=== PATIENT | male | born 1980 | race Caucasian/White ===

== ENCOUNTER 2017-01-11 23:22 | Emergency (ER) | payer SELFPAY ==
[~2017-01-11] VITALS: Ht 185.4 cm; Wt 94.0 kg
[~2017-01-11 23:22] MED LIST: ALBU18HF INHALATION; ARIP5TAB7 PO; PRED20TA PO; PULM90 INH; VENL225T PO
[2017-01-11 23:47] VITALS: Ht 185.4 cm; Wt 94.0 kg
== END 2017-01-12 04:35 | disposition left against medical advice (07) ==
LOC: FTE 23:22
DX: Z53.21 Procedure and treatment not carried out due to patient leaving prior to being seen by health care provider (principal)

== ENCOUNTER 2017-01-23 09:44 | Emergency (ER) | payer OTHER ==
[~2017-01-23] VITALS: Ht 185.4 cm; Wt 92.5 kg
[2017-01-23 09:46] VITALS: Ht 185.4 cm; Wt 92.5 kg
[2017-01-23] MEDS ORDERED: IPRATROPIUM (NEB) 0.5 MG/2.5 ML AMP NEB STA (10:26)
[2017-01-23] MEDS ORDERED: ALBUTEROL 0.083% (NEB) 2.5 MG/3 ML AMP NEB STA (10:26)
--- NOTE | 2017-01-23 10:45 | ERD ---
ER Documentation Chief Complaint Date/Time DATE: 01/23/17 TIME: 10:42 Chief Complaint asthma attack x3 in last 3 days, speaking full sentences, no sob noted. HPI This is a 36-year-old male who presents to the emergency department today complaining of an asthma attack this morning. Patient said it resolved here upon presentation to the emergency room. Patient states he has had 3 asthma attacks in the last 3 days. States he took a Zyrtec today but he has run out of his inhaler. States he tried to call his primary care doctor to get a refill but his doctor would not give him 1. States he has an appointment in 2 days with his primary care physician for follow-up. Denies any fevers or chills , chest pain or shortness of breath currently ROS All systems reviewed and are negative except as per history of present illness. Medications Home Meds Active Scripts Fluticasone Propionate (Flonase Allergy Relief) 9.9 Ml [place].susp, 1 SPRAY NASAL BID, #1 BOTTLE TO EACH NOSTRIL Prov:AUTUMN HUGGINS PA-C 01/23/17 Albuterol Sulfate* (Proair HFA*) 8.5 Gm Hfa.aer.ad, 2 PUFF INH Q4, #1 INHALER Prov:AUTUMN HUGGINS PA-C 01/23/17 Budesonide* (Pulmicort* Flexhaler) 90 Mcg Aer.pow.ba, 90 MCG INH BID, #1 EA Prov:PA SAWYER DO 09/21/16 Prednisone* (Prednisone*) 20 Mg Tab, 40 MG PO DAILY, #4 TAB Prov:SILVERIOPA DO 09/21/16 Albuterol Sulfate* (Ventolin HFA*) 18 Gm Hfa.aer.ad, 2 PUFF INHALATION Q4H, #2 INHALER Prov:PA SAWYER DO 09/21/16 Reported Medications Venlafaxine Hcl* (Venlafaxine Hcl ER*) 225 Mg Tab.er.24, 225 MG PO DAILY, TAB.SA 05/20/16 Aripiprazole* (Abilify*) 5 Mg Tab, 5 MG PO DAILY, #30 TAB 05/20/16 Allergies Allergies: Coded Allergies: No Known Allergy (Unverified , 09/21/16) PMhx/Soc History of Surgery: Yes (kidney stone removal) Anesthesia Reaction: No Hx Neurological Disorder: No Hx Respiratory Disorders: Yes (asthma attacks) Hx Cardiac Disorders: No Hx Psychiatric Problems: No Hx Miscellaneous Medical Probl: No Hx Alcohol Use: No Hx Substance Use: Yes (occassionaly, marijuana ) Hx Tobacco Use: No Physical Exam Vitals Vital Signs Date Time Temp Pulse Resp B/P Pulse Ox O2 Delivery O2 Flow Rate FiO2 01/23/17 10:36 85 20 96 21 01/23/17 09:46 97.1 82 22 116/64 97 Physical Exam Const: NAD, speaking in full sentences. Head: Atraumatic Eyes: Normal Conjunctiva ENT: Normal External Ears, Nose and Mouth. Neck: Full range of motion..~ No meningismus. Resp: Sided lung field with very faint wheezing at bases. Right-sided lung clear. No retractions. Cardio: Regular rate and rhythm, no murmurs Abd: Soft, non tender, non distended. Normal bowel sounds Skin: No petechiae or rashes Neur: Awake and alert Psych: Normal Mood and Affect Results 24 hrs Current Medications Medications (Trade) Dose Ordered Sig/Ginette Route PRN Reason Start Time Stop Time Status Last Admin Dose Admin Albuterol (Proventil 0.083% (Neb)) 5 mg ONCE STAT NEB 01/23/17 10:26 01/23/17 10:28 DC 01/23/17 10:36 Ipratropium [place] (Atrovent 0.02% (Neb)) 0.5 mg ONCE STAT NEB 01/23/17 10:26 01/23/17 10:28 DC 01/23/17 10:36 Procedures/MDM This is a 36-year-old male who presents to the emergency department today complaining of an asthma attack that started this morning. Patient ran out of his pro-air inhaler. Patient is afebrile here in the emergency department. His oxygen saturation is 97%. Patient had very faint wheezing at the lung bases of the left side of his lung daily and therefore did give him one breathing treatment here in the emergency department. Patient reported feeling symptomatically better. Wheezing improved. Do not feel the patient requires steroids or a chest x-ray at this time. Low suspicion for pneumonia, PE, abscess, pleural effusion, pneumothorax. Patient symptoms at this time consistent with asthma exacerbation. Patient was given a prescription for pro-air for home. He was instructed to continue taking his Zyrtec. He did have some nasal congestion I will give him some Flonase as well. At this time the patient is stable for discharge and outpatient management. Patient should follow up with their PCP in the next 1-2 days. They may return to the emergency department sooner for any persistent or worsening of symptoms. Patient understood and agreed with the plan. Departure Diagnosis: Primary Impression: Asthma with acute exacerbation Asthma severity: unspecified severity Qualified Code: J45.901 - Asthma with acute exacerbation, unspecified asthma severity Condition: AUTUMN Royal PA-C Jan 23, 2017 10:45
[2017-01-23] MEDS ORDERED: FLUT9.9S NASAL (11:00)
[2017-01-23] MEDS ORDERED: ALBU8.5H3 INH (11:00)
== END 2017-01-23 11:08 | disposition home or self-care (01) ==
LOC: FTE 09:44
DX: J45.901 Unspecified asthma with (acute) exacerbation (principal)
CPT/HCPCS: 94664; Z7502; Z7610

== ENCOUNTER 2017-04-29 15:13 | Emergency (ER) | payer OTHER ==
[~2017-04-29] VITALS: Ht 185.4 cm; Wt 96.0 kg
[~2017-04-29 15:13] MED LIST changes: +ALBU8.5H3 INH; +FLUT9.9S NASAL
[2017-04-29 15:17] VITALS: Ht 185.4 cm; Wt 96.0 kg
[2017-04-29] MEDS ORDERED: ALBUTEROL 0.083% (NEB) 2.5 MG/3 ML AMP HHN STA (15:32)
--- NOTE | 2017-04-29 15:32 | ERD ---
ER Documentation Chief Complaint Date/Time DATE: 04/29/17 TIME: 15:30 Chief Complaint WHEEZING SINCE LAST NIGHT HPI 37-year-old male who presented emergency department for wheezing since last night. Has history of asthma. Ran out of his pro-air at home. His last dose of pro-air was last week. Stated that they are moving to another place and has been exposed to dust. Denies headache, loss of consciousness, dizziness, blurry vision, changes in vision, photophobia, facial pain, ear pain, throat pain, difficulty swallowing, neck pain, shoulder pain, chest pain, cough, hemoptysis, abdominal pain, back pain, loss of appetite, nausea, vomiting, hematochezia, diarrhea, constipation, urinary symptoms, bladder and bowel incontinences, extremity weakness, extremity tenderness, numbness or tingling sensation, difficulty walking, recent travel, recent exposure to illness, recent antibiotic use in the last 3 months, fever, chills. Allergy: No known drug allergies. PMH: Asthma. Left-sided kidney stones 2 years ago. Medications: Pro-air. Surgery: Right-sided inguinal hernia with repair 20 years ago. Family history: Denies family history of cardiac before the age of 50. Primary Social History: Works at a [employer]. Denies smoking, use of alcohol, use of illegal drugs. ROS All systems reviewed and are negative except as per history of present illness. Medications Home Meds Active Scripts Albuterol Sulfate* (Proair HFA*) 8.5 Gm Hfa.aer.ad, 2 PUFF INH Q4H Y for WHEEZING AND SOB, #2 INHALER Prov:MARISA MARY 04/29/17 Prednisone* (Prednisone*) 20 Mg Tab, 40 MG PO DAILY for 5 Days, TAB Prov:MARISA MARY 04/29/17 Fluticasone Propionate (Flonase Allergy Relief) 9.9 Ml [place].susp, 1 SPRAY NASAL BID, #1 BOTTLE TO EACH NOSTRIL Prov:AUTUMN HUGGINS PA-C 01/23/17 Albuterol Sulfate* (Proair HFA*) 8.5 Gm Hfa.aer.ad, 2 PUFF INH Q4, #1 INHALER Prov:AUTUMN HUGGINS PA-C 01/23/17 Budesonide* (Pulmicort* Flexhaler) 90 Mcg Aer.pow.ba, 90 MCG INH BID, #1 EA Prov:PA SAWYER DO 09/21/16 Prednisone* (Prednisone*) 20 Mg Tab, 40 MG PO DAILY, #4 TAB Prov:PA SAWYER DO 09/21/16 Albuterol Sulfate* (Ventolin HFA*) 18 Gm Hfa.aer.ad, 2 PUFF INHALATION Q4H, #2 INHALER Prov:PA SAWYER DO 09/21/16 Reported Medications Venlafaxine Hcl* (Venlafaxine Hcl ER*) 225 Mg Tab.er.24, 225 MG PO DAILY, TAB.SA 05/20/16 Aripiprazole* (Abilify*) 5 Mg Tab, 5 MG PO DAILY, #30 TAB 05/20/16 Allergies Allergies: Coded Allergies: No Known Allergy (Unverified , 09/21/16) PMhx/Soc History of Surgery: Yes (kidney stone removal) Anesthesia Reaction: No Hx Neurological Disorder: No Hx Respiratory Disorders: Yes (asthma attacks) Hx Cardiac Disorders: No Hx Psychiatric Problems: No Hx Miscellaneous Medical Probl: No Hx Alcohol Use: No Hx Substance Use: Yes (occassionaly, marijuana ) Hx Tobacco Use: No Physical Exam Vitals Vital Signs Date Time Temp Pulse Resp B/P Pulse Ox O2 Delivery O2 Flow Rate FiO2 04/29/17 15:42 79 21 97 21 04/29/17 15:17 98.0 87 18 150/86 97 Physical Exam CONSTITUTIONAL: Well-appearing; well-nourished; in no apparent distress. HEAD: Normocephalic; atraumatic. EYES: Conjunctiva clear, sclera non-icteric, EOM intact. PERRL Ears: Hearing intact. EACs clear, TMs non-bulging, non-inflamed, translucent & mobile, ossicles normal appearance, No obstructions, no erythema, no discharges Nose: No obstructions. No polyps. No external lesions. Mucosa non-inflamed. No external lesions, septum and turbinates normal. No rhinorrhea. No discharges. Frontal sinus is non-tender to palpation. Maxillary sinus is non-tender to palpation. MOUTH: Moist mucous membranes, no lesion, no obstructions, no vesicles, no thrush, patent airway Throat: Uvula in midline. Right tonsil is +1 with no erythema, no exudate. Left tonsil is +1 with no erythema, no exudate. Tolerating secretions well. Good gag reflex. Patent airway. Neck: Supple, without lesions, bruits, or adenopathy. No mass. Thyroid non- enlarged and non-tender to palpation. CHEST: Symmetrical chest. Respirations even and not labored. No retractions noted. CARDIOVASCULAR: Normal S1, S2. RRR. No murmurs, gallops. RESPIRATORY: Normal chest excursion with respiration. Bilateral wheezing. No rhonchi, or rales. Breathing even and unlabored. Speaking in clear, full, and complete sentences w/ ease. ABDOMEN: Normal bowel sounds normal. Soft, round, non-distended, non-guarding, no tenderness, no rebound, no organomegaly, no masses, no pulsating abdominal mass. No hernia. No peritoneal signs. : No CVA tenderness. BACK: Symmetrical shoulder. Spine is midline without deformity, tenderness. No evidence of trauma or deformity. PELVIS: Stable pelvis. No evidence of trauma or deformity. MUSCULOSKELETAL: Normal gait and station. No misalignment, asymmetry, crepitation, defects, tenderness, masses, effusions, decreased range of motion, instability, atrophy or abnormal strength or tone in the head, neck, spine, ribs , pelvis or extremities. No calf tenderness. NEUROVASCULAR: Distal pulses are present. Pedal pulse are present, equal, and normal. Capillary refills are < 2 seconds. NEUROLOGIC: Alert and oriented x4. Speaks full and clear sentences. Cranial Nerves II-XII normal. Sensation to pain, touch, and proprioception normal. Grossly unremarkable. No neurologic deficits. Romberg test is negative. PSYCHOLOGICAL: The patients mood and manner are appropriate. No hallucinations , delusions. Not SI. Not HI. Has the capacity to decide for self SKIN: Normal for age and ethnicity; warm; dry; good turgor; no apparent lesions or exudates. No rashes, hives, discoloration. Intact. Results 24 hrs Current Medications Medications (Trade) Dose Ordered Sig/Ginette Route PRN Reason Start Time Stop Time Status Last Admin Dose Admin Albuterol (Proventil 0.083% (Neb)) 5 mg ONCE STAT HHN 04/29/17 15:32 04/29/17 15:33 DC 04/29/17 15:38 Ipratropium [place] (Atrovent 0.02% (Neb)) 0.5 mg ONCE ONCE N 04/29/17 16:00 04/29/17 16:01 DC 04/29/17 15:39 Procedures/MDM Examination: Please see physical examination. Disease process, medical treatment was explained to the patient and family member. They verbalized understanding and agreed with the medical treatment, and follow-up care. Treatment: Albuterol and Atrovent breathing treatment. Re-evaluation: Denies headache, dizziness, blurry vision, neck pain, shoulder pain, chest pain, back pain, abdominal pain, nausea, vomiting. Tolerating secretions. Patent airway. No episode of emesis in the emergency department. Alert and oriented 4. Speaks full and clear sentences. Respirations even and unlabored. Lung sounds clear to auscultation. Active bowel sounds. There is no right upper/right lower/epigastric/left upper/left lower abdominal tenderness and light and deep palpation. Negative on [place] sign. Negative [place] sign. Able to jump 5 times without developing right-sided abdominal pain. No peritoneal signs. Alert and oriented 4. Speaks full and clear sentences. Respirations even and unlabored. Lung sounds clear to auscultation. Ambulatory with steady gait. No neurovascular deficits. No neurological deficits. Stated that she feels much better at this time. Consultation: None. Differential diagnosis: Status asthmaticus versus asthma exacerbation versus asthma Medical decision makin-year-old male who presented emergency department for wheezing since last night. Has history of asthma. Ran out of his pro-air at home. His last dose of pro-air was last week. Stated that they are moving to another place and has been exposed to dust. I offered the patient Solu- Medrol shot and albuterol and Atrovent breathing treatment. Patient refuses Solu-Medrol shot but prefers albuterol and Atrovent breathing treatment here and be prescribed with prednisone pills and pro-air on discharge. Patient's complaint, patient history about his complaint, my physical findings, my reevaluation are consistent with my final diagnosis of asthma exacerbation. Medications prescribed are the following: Pro-air. Prednisone. Patient and family member are made aware of the side effects and adverse reactions of the medications prescribed. Instructed on when to seek emergent and medical attention in case allergic/anaphylactic reactions or severe side effects and or adverse reactions to medications. Patient and family member verbalized understanding. Patient instructed Instructed to follow-up with his PCP in 24-48 hours. Instructed to Call 911 for chest pain, shortness of breath. Advised to come back here in ED as soon as possible for severity of symptoms which includes but not limited to: any new symptoms; shortness of breath/difficulty of breathing; cardiovascular changes; severe gastrointestinal symptoms; signs and symptoms of bleeding and or infection; signs of compartment syndrome/neurovascular changes; neurological changes/deficits. Patient and family member verbalized understanding. Upon discharge, patient is alert and oriented x 4, speaks full and clear sentences, denies pain, has no neurological deficits, has no neurovascular deficits, difficulty of breathing. Breathing even and unlabored. Lung sounds are clear to auscultation. Not in distress. Appears comfortable. Ambulatory with steady gait. Appears satisfied with care provided here in ED. Departure Diagnosis: Primary Impression: Asthma attack Additional Impression: Asthma with acute exacerbation Condition: Good Additional Instructions: Instructed to follow-up with his PCP in 24-48 hours. Instructed to Call 911 for chest pain, shortness of breath. Advised to come back here in ED as soon as possible for severity of symptoms which includes but not limited to: any new symptoms; shortness of breath/difficulty of breathing; cardiovascular changes; severe gastrointestinal symptoms; signs and symptoms of bleeding and or infection; signs of compartment syndrome/neurovascular changes; neurological changes/deficits. Patient and family member verbalized understanding. MARISA MARY Apr 29, 2017 15:32
[2017-04-29] MEDS ORDERED: ALBU8.5H3 INH (15:55)
[2017-04-29] MEDS ORDERED: PRED20TA PO (15:55)
[2017-04-29] MEDS ORDERED: IPRATROPIUM (NEB) 0.5 MG/2.5 ML AMP HHN ONE (16:00)
== END 2017-04-29 16:10 | disposition home or self-care (01) ==
LOC: FTE 15:13
DX: J45.901 Unspecified asthma with (acute) exacerbation (principal)
CPT/HCPCS: 94664; Z7610